=== PATIENT | male | born 1940 | race Caucasian/White ===

== ENCOUNTER → 2019-09-29 | Outpatient (CLI) | payer MEDICARE, OTHER ==
[~2019-09-29] MED LIST: DEPAKOTE 250MG250 MG PO; FLOMAX 0.40.4 MG/CAP PO; PAXIL 10MG10 MG PO; TYLENOL 500MG500 MG PO
== END ==
LOC: COL.PUL 09:58
DX: R06.02 Shortness of breath (principal)
CPT/HCPCS: J7674

== ENCOUNTER 2021-01-06 05:53 | Inpatient (IN) | payer MEDICARE, OTHER ==
[~2021-01-06] VITALS: Ht 180.3 cm; Wt 80.2 kg
[2021-01-06 06:24] LABS: HEMATOCRIT 42.4 % (42.0-52.0); HEMOGLOBIN 15.4 g/dl (13.5-18.0); MEAN CELL VOLUME 86 fl (80.0-100.0); MEAN CORPUSCULAR HEMOGLOBIN 31 pg (27.0-31.0); MEAN CORPUSCULAR HGB CONC 36 g/dl (33.0-37.0); MEAN PLATELET VOLUME 9.1 fl (7.4-10.4); PLATELET COUNT 164 K/mm3 (130-400); RED BLOOD COUNT 4.93 M/mm3 (4.20-5.60); REDCELL DISTRIBUTION WIDTH-CV 15.7 % (11.5-14.5)
[2021-01-06 06:33] LABS: BILIRUBIN,TOTAL 0.7 mg/dL (0.0-1.0); CREATININE, serum 0.98 (0.66-1.25); POTASSIUM 3.7 mmol/L (3.4-5.0); TOTAL PROTEIN 5.7 gm/dL (6.4-8.2)
[2021-01-06 06:43] LABS: TROPONIN-I 0.017 ng/mL (0.000-0.035)
[2021-01-06 07:00] LABS: BASOPHIL 1 % (0-2); LYMPHOCYTE 13 % (20.0-51.0); METAMYELOCYTE 7 % (0-0); NEUTROPHILS 72 % (42.0-75.2)
[2021-01-06 07:01] LABS: ANISOCYTOSIS 1+; PLATELET ESTIMATE NORMAL (NORMAL)
[2021-01-06] MEDS ORDERED: ONE-A-DAY ESSE1 EACH PO (10:53)
[2021-01-06] MEDS ORDERED: LEVAQUIN 5500 MG/TA1 PO (10:53)
[2021-01-06] MEDS ORDERED: CORDARONE200 MG/TAB PO (10:54)
[2021-01-06] MEDS ORDERED: KLONOPIN 0.5MG0.5 MG PO (10:54)
[2021-01-06] MEDS ORDERED: KLONOPIN 1MG1 MG PO (10:55)
[2021-01-06] MEDS ORDERED: DEPAKOTE 250MG250 MG PO (10:55)
[2021-01-06] MEDS ORDERED: CARDIZEM CD 12120 MG PO (10:55)
[2021-01-06] MEDS ORDERED: STOOL SOFTENER100 M2 PO (10:56)
[2021-01-06] MEDS ORDERED: ELIQUIS 5MG PO (10:56)
[2021-01-06] MEDS ORDERED: LASIX 40MG TABL40 MG PO (10:56)
[2021-01-06] MEDS ORDERED: PREDNISONE20 MG PO (10:57)
[2021-01-06 16:00] VITALS: BP 115/67; PULSE 76; TEMP 97.6
[2021-01-06 17:35] VITALS: BP 110/74; PULSE 73; TEMP 97.8
--- NOTE | 2021-01-06 18:41 | NUR ---
PT ADMITTED TODAY. SPOUSE AT THE BEDSIDE. PT PRESENTS SHORT OF BREATH JUST BY TALKING. PT NOTED ON 5L OF OXYGEN TO MAINTAIN OXYGEN SATURATION ABOVE 90%. PT OTHERWISE STABLE. PT CURRENTLY VOICES NO CONCERNS. COMFORT MEASURES IN PLACE.
[2021-01-06 20:05] VITALS: BP 112/78; PULSE 70; TEMP 97.5
[2021-01-06 23:56] VITALS: BP 111/71; PULSE 68; TEMP 97.8
[2021-01-07 03:43] VITALS: BP 114/69; PULSE 66; TEMP 97.5
[2021-01-07 07:58] VITALS: BP 112/66; PULSE 68; TEMP 98.3
--- NOTE | 2021-01-07 10:06 | NUR ---
Initial visit; Patient thanked Software Systems Engineer for looking in on him and offering prayer and God's blessings. Software Systems Engineer will keep patient in her prayers.
[2021-01-07 11:20] VITALS: BP 114/71; PULSE 72; TEMP 98.1
--- NOTE | 2021-01-07 15:21 | NUR ---
Project Management Analyst attended clinical rounds with the team. PT/OT ordered. Following rounds, ALVARO met with the patient to complete intake. The patient lives in [place] with his Amanda. The patient has a walker, cane and is on 4 or 5L of continuous oxygen. The patient's assists with ADLs. The patient's PCP is Dr. Omer Bravo and the patient receives medications from [facility] in and via mail from [facility]. The patient does not have advanced directives in the EMR but states they are complete. The patient plans to return home. ALVARO discussed home health and provided Medicare.gov's list of agencies. They will review the list then decide. *Discharge disposition at this time: Home (possible home health)*
[2021-01-07 16:49] VITALS: BP 112/67; PULSE 64; TEMP 97.6
[2021-01-07 19:35] VITALS: BP 119/73; PULSE 68; TEMP 97.5
[2021-01-08 00:22] VITALS: BP 115/72; PULSE 70; TEMP 97.5
[2021-01-08 04:20] VITALS: BP 121/70; PULSE 67; TEMP 98
[2021-01-08 07:04] LABS: HEMATOCRIT 43.7 % (42.0-52.0); HEMOGLOBIN 15.2 g/dl (13.5-18.0); MEAN CELL VOLUME 89 fl (80.0-100.0); MEAN CORPUSCULAR HEMOGLOBIN 31 pg (27.0-31.0); MEAN CORPUSCULAR HGB CONC 35 g/dl (33.0-37.0); MEAN PLATELET VOLUME 9.6 fl (7.4-10.4); PLATELET COUNT 156 K/mm3 (130-400); RED BLOOD COUNT 4.94 M/mm3 (4.20-5.60); REDCELL DISTRIBUTION WIDTH-CV 15.9 % (11.5-14.5)
[2021-01-08 07:20] LABS: CALCIUM 8.7 mg/dL (8.4-10.2); CREATININE, serum 0.91 (0.66-1.25); POTASSIUM 3.9 mmol/L (3.4-5.0)
[2021-01-08 07:27] VITALS: BP 100/60; PULSE 68; TEMP 97.6
[2021-01-08 12:31] VITALS: BP 103/64; PULSE 72; TEMP 97.6
--- NOTE | 2021-01-08 14:22 | NUR ---
Sw met with the , Amanda about HH services. Amanda informed Sw that the doctor is recommending hospice. Amanda and pt is awaiting for further recommendations from there doctor. Amanda also would like information on how to get a medical bed for there home. Sw to wait further recommendations and follow up as needed.
--- NOTE | 2021-01-08 14:25 | NUR ---
0800 PT RECEIVED RESTING IN BED. NO S/S OF DISTRESS NOTED. OXYGEN IN PLACE. PT VOICES NO CONCERNS AT THIS TIME. WILL CONTINUE TO MONITOR. PT ATE HIS MEAL. 0900 MEDICATIONS ADMINISTERED ORDER. COMFORT MEASURES IN PLACE.
[2021-01-08 15:21] VITALS: BP 96/70; PULSE 69; TEMP 98
[2021-01-08 19:38] VITALS: BP 112/66; PULSE 69; TEMP 97.6
[2021-01-09] VITALS (8 sets, daily range): BP systolic 101–150; BP diastolic 68–79; PULSE 70–95; TEMP 97.2–98.3
[2021-01-09 08:03] LABS: CALCIUM 8.5 mg/dL (8.4-10.2); CREATININE, serum 0.95 (0.66-1.25); POTASSIUM 3.9 mmol/L (3.4-5.0)
[2021-01-09 08:10] LABS: HEMOGLOBIN 15.8 g/dl (13.5-18.0); MEAN CELL VOLUME 90 fl (80.0-100.0); MEAN CORPUSCULAR HEMOGLOBIN 31 pg (27.0-31.0); MEAN CORPUSCULAR HGB CONC 34 g/dl (33.0-37.0); MEAN PLATELET VOLUME 9.4 fl (7.4-10.4); PLATELET COUNT 150 K/mm3 (130-400); RED BLOOD COUNT 5.11 M/mm3 (4.20-5.60); REDCELL DISTRIBUTION WIDTH-CV 16.3 % (11.5-14.5)
[2021-01-09 09:55] LABS: BAND 4 % (0-10); LYMPHOCYTE 10 % (20.0-51.0); METAMYELOCYTE 9 % (0-0); NEUTROPHILS 77 % (42.0-75.2)
[2021-01-09 09:58] LABS: PLATELET ESTIMATE NORMAL (NORMAL)
--- NOTE | 2021-01-09 21:44 | NUR ---
Patient sitting up in the bed upon enter the room. Visitors in the room. Shift assessment completed. Patient alert and oriented. Patient denies any pain or discomfort. Patient denies SOB or dyspnea while at rest. Patient currently on 5L via high flow NC. Breathing even and unlabored. No acute respiratory distress noted. All scheduled meds given per SEP. Ice water provided per patient request. Call light within reach. Patient denies further needs at this time.
[2021-01-10 03:27] VITALS: BP 100/57; PULSE 67; TEMP 97.5
[2021-01-10 06:24] LABS: HEMATOCRIT 47.1 % (42.0-52.0); HEMOGLOBIN 16.4 g/dl (13.5-18.0); MEAN CELL VOLUME 89 fl (80.0-100.0); MEAN CORPUSCULAR HEMOGLOBIN 31 pg (27.0-31.0); MEAN CORPUSCULAR HGB CONC 35 g/dl (33.0-37.0); PLATELET COUNT 149 K/mm3 (130-400); RED BLOOD COUNT 5.29 M/mm3 (4.20-5.60); REDCELL DISTRIBUTION WIDTH-CV 16.8 % (11.5-14.5)
[2021-01-10 06:34] LABS: CALCIUM 8.9 mg/dL (8.4-10.2); CREATININE, serum 1.18 (0.66-1.25); POTASSIUM 3.9 mmol/L (3.4-5.0)
--- NOTE | 2021-01-10 06:56 | NUR ---
Patient's left hand IV infiltrated. Removed IV from left hand and covered with gauze. Patient states since he admitted to the hospital, he never had to use IV medications and no need new IV. Patient sitting up in bed in good mood. Patient states feeling better this morning. Call alexandria conroy.
[2021-01-10 07:00] LABS: BAND 12 % (0-10); LYMPHOCYTE 9 % (20.0-51.0); NEUTROPHILS 73 % (42.0-75.2); PLATELET ESTIMATE NORMAL (NORMAL)
[2021-01-10 08:02] VITALS: BP 102/65; PULSE 83; TEMP 97.7
--- NOTE | 2021-01-10 08:20 | NUR ---
PT PLEASANT, AOX4, [place], ASSESSMENT PERFORMED, PT DENIES PAIN/DISCOMFORT, MEDICATIONS GIVEN IN APPLESAUCE PER PT REQUEST, WATER BROUGHT IN, CALL LIGHT WITHIN REACH, BED IN LOWEST POSITION, EAGER FOR DISCHARGE. TEARFUL ON PHONE CALL WITH FAMILY. NO OTHER NEEDS.
[2021-01-10] MEDS ORDERED: TRELEGY ELLIPT1 EACH IH (08:49)
[2021-01-10] MEDS ORDERED: IPRATROPIUM BROM3 M1 IH (08:49)
[2021-01-10] MEDS ORDERED: CELEXA 20MG20 MG/TAB PO (08:55)
[2021-01-10] MEDS ORDERED: LEVAQUIN 5500 MG/TA1 PO (08:58)
[2021-01-10] MEDS ORDERED: DALIRESP250 MCG PO (09:00)
[2021-01-10] MEDS ORDERED: PREDNISONE20 MG PO (09:02)
--- NOTE | 2021-01-10 10:37 | NUR ---
I met with patient after he had spoken with Patrizia and his family. He reports to me that he is not ready yet for hospice services--he plans to get stronger. He is going home with home health through [facility]. He is starting to look for a one level home but has not had much luck. He has done very little activity out of bed, max 2 steps, and his family is voicing concern about his ability to come home. He reports he must try to go home and get stronger--he is not ready to give up! Family is aware of his situation and are concerned.
[2021-01-10 11:11] VITALS: BP 112/72; PULSE 74; TEMP 97.6
--- NOTE | 2021-01-10 13:40 | NUR ---
PT DISCHARGE EDUCATION PROVIDED TO PT, PT , PT SON AND GRANDSON. NO IV TO REMOVE AT THIS TIME, TELEMETRY DC'D, ASSISTED PT IN GETTING DRESSED AND TRANSFERRED TO WHEELCHAIR. QUESTIONS ON DISCHARGE ANSWERED TO BEST OF MY ABILITY. PT ESCORTED OUT VIA WHEELCHAIR WITH PT BELONGINGS. NO OTHER NEEDS
== END 2021-01-10 13:40 | disposition home health service (06) | DRG 196 ==
LOC: COL.ER 05:53 → MEDICAL 08:41
PROVIDERS: Personal Emergency Response Attendant; Physician Assistant; ADMIT Internal Medicine
DX: J84.10 Pulmonary fibrosis, unspecified (principal); J96.21 Acute and chronic respiratory failure with hypoxia; E87.1 Hypo-osmolality and hyponatremia; J43.9 Emphysema, unspecified; I10 Essential (primary) hypertension; I27.20 Pulmonary hypertension, unspecified; I77.810 Thoracic aortic ectasia; T38.0X5A Adverse effect of glucocorticoids and synthetic analogues, initial encounter; F41.0 Panic disorder [episodic paroxysmal anxiety]; D72.829 Elevated white blood cell count, unspecified; R53.81 Other malaise; Z95.2 Presence of prosthetic heart valve; Z99.81 Dependence on supplemental oxygen; Z79.01 Long term (current) use of anticoagulants; Z79.52 Long term (current) use of systemic steroids; Z87.891 Personal history of nicotine dependence; Z88.2 Allergy status to sulfonamides; Z20.822 Contact with and (suspected) exposure to COVID-19
CPT/HCPCS: 99222-AI; 99232-AI; 99239; J0456; J0696; J2060; J2930; J7050; J7512; Q9967